=== PATIENT | male | born 1975 | race Caucasian/White ===

== ENCOUNTER 2018-11-14 07:40 | Inpatient (IN) | payer BC, SELFPAY ==
[2018-11-14] MEDS ORDERED: Ondansetron PF 4 MG/2 ML Vial ONE (07:45)
[2018-11-14] MEDS ORDERED: Morphine 4 MG/ML VIAL ONE ×2 (07:45→08:25)
--- NOTE | 2018-11-14 08:14 | RAD ---
Exam:Left tibia fibula 2 views HISTORY: Pain. Trauma. COMPARISON: None FINDINGS: Comminuted fractures involving the tibia and fibula with associated soft tissue swelling de formity. IMPRESSION: Comminuted fractures as above.
[2018-11-14] MEDS ORDERED: Fentanyl 100 MCG/2 ML VIAL ONE ×5 (08:34→12:51)
[2018-11-14 09:02] LABS: Hemoglobin 14.7 g/dL (14.0-18.0); Mean Corpuscular HGB CONC 33.4 g/dL (32.0-36.0); Mean Corpuscular Hemoglobin 32.5 pg (27.0-31.0); Mean Corpuscular Volume 97.2 fL (78.0-98.0); Platelet Count 279 thou/uL (130-400); RBC Distribution Width 11.8 % (11.5-14.5); Red Blood Cell (RBC) Count 4.53 mill/uL (4.70-6.10); White Blood Cell (WBC) Count 23.9 thou/uL (4.8-10.8)
--- NOTE | 2018-11-14 09:03 | RAD ---
EXAM: Single view of the chest HISTORY: Chest pain after chest trauma by a cow COMPARISON: None FINDINGS: Single view of the chest shows a normal sized cardiomediastinal silhouette. There is no luis dence of consolidation, mass, or pleural effusion. The bones are unremarkable. IMPRESSION: No evidence of acute cardiopulmonary disease
[2018-11-14 09:15] LABS: ALT (SGPT) 14 U/L (8-55); AST (SGOT) 15 U/L (5-34); Albumin 4.1 g/dL (3.5-5.0); Alkaline Phosphatase 53 U/L (40-150); Anion Gap 11 mmol/L (10-20); BUN (Urea Nitrogen) 15 mg/dL (8.9-20.6); Bilirubin, Total 0.3 mg/dL (0.2-1.2); Calc. Creatinine Clearance 0 mL/min (70-130); Calcium 8.9 mg/dL (7.8-10.44); Carbon Dioxide 25 mmol/L (22-29); Chloride 106 mmol/L (98-107); Estimated GFR-MDRD 64; Globulin 2.9 g/dL (2.4-3.5); Glucose 108 mg/dL (70-105); Potassium 4.3 mmol/L (3.5-5.1); Sodium 138 mmol/L (136-145)
[2018-11-14 09:19] LABS: Band 19 % (5-11); Lymphocytes 19 % (21-51); MDiff Complete? YES; Monocytes 9 % (0-10); Neutrophil 53 % (42-75); RBC Morphology Normal
[2018-11-14] MEDS ORDERED: Midazolam HCl 2 mg/2 ml Vial ONE (10:43)
--- NOTE | 2018-11-14 11:17 | HP ---
This is Rut Quesada PA-C dictating a report for Duncan Rizo DO. TRAUMA SURGEON: Dr. Rizo. CONSULTING PHYSICIAN: Dr. Carrillo. HISTORY OF PRESENT ILLNESS: The patient is a 43-year-old male, who presented to the emergency department via a level 2 trauma activation. The patient reported he was loading cattle into a trailer, when one of the cattle has hit the gate, pushing the patient over, and then he fallen to his left side. He was not ambulatory on the scene. Upon evaluation by the emergency department, it was found that he has a left comminuted tib-fib fracture. Orthopedic Surgery was consulted as well as Trauma Surgery for admission. Dr. Carrillo saw the patient and recommended operative intervention. The patient denies loss of consciousness and anticoagulation use. He denies nausea, vomiting, and diarrhea. REVIEW OF SYSTEMS: All additional 10-point review of systems negative except as indicated above. PAST MEDICAL HISTORY: None. PAST SURGICAL HISTORY: None. SOCIAL HISTORY: The patient smokes about 1-1/2 packs of cigarettes per day, drinks alcohol occasionally, and denies drug abuse. MEDICATIONS: None. ALLERGIES: NO KNOWN DRUG ALLERGIES. PHYSICAL EXAMINATION: VITAL SIGNS: Temperature 98.8, heart rate 92, blood pressure 152/89, respirations 18, oxygen saturation 99% on room air. PRIMARY SURVEY: Airway intact. Adequate breath sounds bilaterally. 2+ pulses in bilateral radials, femorals, and DPs. GCS is 15. Gross motor and sensation intact. No lacerations, no bruises or external bleeding. SECONDARY SURVEY: HEAD: Normocephalic and atraumatic. No gross palpable skull deformities or tenderness. EYES: Pupils are 3 to 2, equal, round, and reactive bilaterally. ENT: No hemotympanum. No epistaxis. No septal hematoma. Midface stable to manipulation. No blood in the oropharynx. Dentition is intact. No anterior neck injury/crepitus/tenderness. C-SPINE: No step-offs or deformities. Nontender. C-collar not in place. CHEST: Nontender. No crepitus. No abrasions or ecchymosis. Equal chest movement. ABDOMEN: Soft, nontender, and nondistended. PELVIS: Stable to palpation. Nontender. No abrasions or ecchymosis. RECTAL: Deferred. GENITOURINARY: Deferred. EXTREMITIES: Splint to left lower extremity. Gross motor and sensation intact in all extremities. No abrasions or ecchymosis noted. 2+ pulses in the bilateral radials, femorals, and DPs. BACK/SPINE: No step-offs, deformities or tenderness to palpation of the thoracic or lumbar spine. No abrasions or ecchymosis noted. NEUROLOGIC: GCS is 15, 5/5 strength in bilateral linoleum layer apprentice, plantar flexion, and dorsiflexion. Gross motor and sensation intact x4 extremities. LABORATORY FINDINGS: White count 23.9, hemoglobin 14.7, hematocrit 44.0, and platelets . Sodium 138, potassium 4.3, chloride 106, carbon dioxide 25, BUN 15, creatinine 1.23, and glucose 108. Total bilirubin 0.3, AST 15, and ALT 14. DIAGNOSTIC FINDINGS: X-ray of the left tib-fib demonstrates comminuted fracture of the left tib-fib. X-ray of the chest demonstrates no evidence of acute cardiopulmonary disease. ASSESSMENT: 1. Status post fall. 2. Left tib-fib fracture, closed. 3. Acute traumatic pain secondary to trauma. PLAN: The patient will be admitted to the trauma floor. He is to go to the OR with Dr. Carrillo today for fixation of his left tib-fib fracture. Postoperatively, he will work with Physical and Occupational Therapy. He is n.p.o. for now with normal saline at 120 an hour. He will not receive chemo DVT prophylaxis today and we will start it tomorrow. He will receive gastric ulcer prophylaxis with Pepcid b.i.d. The patient was seen and evaluated by Dr. Rizo and myself this morning in the emergency department. Job ID: [id number]
[2018-11-14] MEDS ORDERED: Meperidine HCl/PF 25 MG/ML VIAL ONE (12:51)
[2018-11-14] MEDS ORDERED: Ondansetron HCl/PF 4 MG/2 ML Vial IVP PRN (12:55)
[2018-11-14] MEDS ORDERED: Promethazine HCl 25 MG/ML VIAL IM PRN ×2 (12:55→14:14)
[2018-11-14] MEDS ORDERED: Promethazine HCl 25 MG/ML VIAL SLOW IVP PRN (12:55)
[2018-11-14] MEDS ORDERED: HYDROmorphone 2 MG/ML VIAL SLOW IVP PRN (12:55)
[2018-11-14] MEDS ORDERED: Meperidine HCl/PF 25 MG/ML VIAL SLOW IVP PRN (12:55)
[2018-11-14] MEDS ORDERED: Ketorolac Tromethamine 30 MG/ML VIAL ONE (13:04)
[2018-11-14] MEDS ORDERED: HYDROmorphone 2 MG/ML VIAL ONE (13:04)
[2018-11-14] MEDS ORDERED: Dextrose 5% in Water 1,000 ML IV PRN (14:14)
[2018-11-14] MEDS ORDERED: traMADol HCl 50 MG TAB PO PRN (14:14)
[2018-11-14] MEDS ORDERED: hydrALAZINE 20 MG/ML VIAL SLOW IVP PRN (14:14)
[2018-11-14] MEDS ORDERED: Ondansetron PF 4 MG/2 ML Vial IVP PRN (14:14)
[2018-11-14] MEDS ORDERED: Dextrose 50% Abboject 50 ML SYRINGE SLOW IVP PRN (14:14)
[2018-11-14] MEDS: Morphine 4 MG/ML VIAL SLOW IVP PRN (15:28)
[2018-11-14 15:31] LABS: Prothrombin Time 12.9 SEC (12.0-14.7)
[2018-11-14 15:49] VITALS: BMI 27.0
--- NOTE | 2018-11-14 15:59 | RAD ---
Exam:Intraoperative fluoroscopy HISTORY: Fracture COMPARISON: None FINDINGS: 8 fluoroscopic views demonstrate placement of intramedullary marium with 2 distal and 2 proxim al interlocking screws. Fracture lucencies are identified. Proximal and distal fibular fractures are noted Exposure: 50 seconds. 0.73 Gy*cm2. IMPRESSION: Intraoperative fluoroscopy as above. Transcribed Date/Time: 11/14/2018 4:21 PM
[2018-11-14] MEDS: Sodium Chloride 0.9% 1,000 ML IV SCH ×2 (16:05→23:16)
--- NOTE | 2018-11-14 16:09 | CON ---
DATE OF CONSULTATION: CHIEF COMPLAINT: Left leg pain. HISTORY OF PRESENT ILLNESS: Tomas is a 43-year-old white male, who had an accident at the [facility] earlier this morning. He was moving cattle for transport. [place] swung open and his left leg was caught between the ramp and the gate as he fell over, resulting in a distal 3rd metadiaphyseal segmental tibial fracture with accompanied segmental fibular fracture. He was brought to [facility] via EMS and plain radiographs revealed the isolated long-bone fracture on the left leg. The Trauma team has admitted the patient and we have been consulted for definitive orthopedic management of this problem. PAST MEDICAL HISTORY: Essentially negative. PAST SURGICAL HISTORY: Negative. MEDICATIONS: None. ALLERGIES: NO KNOWN DRUG ALLERGIES. NOT ANY CONTACT ALLERGIES. SOCIAL HISTORY: He is . He lives locally outside of [place] and he does smoke about a pack and a half of cigarettes per day. Ethanol, he consumes on social basis. PHYSICAL EXAMINATION: VITAL SIGNS: Well-nourished, well-developed white male, appearing his stated age, no apparent distress or discomfort. HEENT: Head is normocephalic, atraumatic. Pupils equally round and reactive to light. Oropharynx is benign. CHEST: Clear to auscultation. HEART: Regular rate and rhythm. ABDOMEN: Soft, benign. EXTREMITIES: No clubbing, cyanosis, or edema. Visual inspection of left lower extremity demonstrates him to have a tenting of the skin about distal 3rd of the anterior mid pagan. He is neurovascularly intact and reduction maneuver is performed to correct his apex dorsal deformity, but his rotation appears to be pretty good. Distal pulses are bounding and +2 dorsalis pedis, posterior tibialis and he has good full digital excursion and sensation in all digits. IMPRESSION: 1. Isolated left tibial segmental distal 3rd metadiaphyseal shaft fracture, closed. 2. Segmental fibular shaft fracture, closed. PLAN: 1. The patient will be admitted by Trauma. 2. The risks, benefits, options, alternatives, and rationale for proceeding with transtibial intramedullary nail fixation has been explained in great detail with the patient. He is ready to proceed. All questions were answered. No guarantee of outcome has been stated or implied. 3. I dosed the patient with 100 mcg of fentanyl and applied in-line longitudinal traction to perform reduction of his shortened and apex anterior deformity. A well-padded posterior splint was applied. The patient tolerated this well. 4. Please see orders. Job ID: [id number]
[2018-11-14] MEDS: Acetaminophen 1,000 MG in Premix Bag 1 BAG IVPB SCH (18:03)
[2018-11-14] MEDS: CEFAZOLIN 2 GM in Premix Bag 1 BAG IVPB SCH (18:03)
[2018-11-14] MEDS: traMADol HCl 50 MG TAB PO SCH (18:03)
[2018-11-14] MEDS: Cyclobenzaprine 10 MG TAB PO PRN (21:13)
[2018-11-14] MEDS: Ibuprofen 800 MG TAB PO SCH (21:13)
[2018-11-14] MEDS: Senokot S 8.6-50 MG TAB PO SCH (21:13)
[2018-11-14] MEDS: Aspirin 81 mg Enteric Coated Tablet PO SCH (21:14)
[2018-11-14] MEDS: Famotidine 20 MG TAB PO SCH (21:14)
[2018-11-15] MEDS: CEFAZOLIN 2 GM in Premix Bag 1 BAG IVPB SCH (02:21)
[2018-11-15] MEDS: Acetaminophen 1,000 MG in Premix Bag 1 BAG IVPB SCH ×2 (05:41)
[2018-11-15] MEDS: Ibuprofen 800 MG TAB PO SCH ×3 (05:42→22:16)
[2018-11-15] MEDS: traMADol HCl 50 MG TAB PO SCH ×4 (05:42→22:17)
[2018-11-15 05:51] LABS: #Eosinphils 0.1 thou/uL (0.0-0.7); #Lymphocytes 3.3 thou/uL (1.20-3.40); #Monocytes 2.1 thou/uL (0.11-0.59); #Neutrophils 12.5 thou/uL (1.40-6.50); %Basophils 0.1 % (0.0-1.0); %Eosinophils 0.5 % (0.0-10.0); %Lymphocytes 18.5 % (21.0-51.0); %Monocytes 11.7 % (0.0-10.0); %Neutrophils 69.1 % (42.0-75.0); Hemoglobin 11.5 g/dL (14.0-18.0); Mean Corpuscular HGB CONC 33.6 g/dL (32.0-36.0); Mean Corpuscular Hemoglobin 32.9 pg (27.0-31.0); Mean Platelet Volume 7.7 fL (7.4-10.4); Platelet Count 222 thou/uL (130-400); RBC Distribution Width 11.7 % (11.5-14.5); Red Blood Cell (RBC) Count 3.51 mill/uL (4.70-6.10)
[2018-11-15 06:07] LABS: Anion Gap 10 mmol/L (10-20); BUN (Urea Nitrogen) 14 mg/dL (8.9-20.6); Calc. Creatinine Clearance 120 mL/min (70-130); Calcium 8.5 mg/dL (7.8-10.44); Carbon Dioxide 24 mmol/L (22-29); Chloride 110 mmol/L (98-107); Estimated GFR-MDRD 78; Glucose 100 mg/dL (70-105); Magnesium 2.1 mg/dL (1.6-2.6); Phosphorus 3.8 mg/dL (2.3-4.7); Potassium 4.3 mmol/L (3.5-5.1); Sodium 140 mmol/L (136-145)
[2018-11-15] MEDS: Sodium Chloride 0.9% 1,000 ML IV SCH (06:12)
--- NOTE | 2018-11-15 08:37 | OP ---
DATE OF PROCEDURE: 11/14/2018 PROCEDURE PERFORMED: Left segmental tibia fracture intramedullary nail fixation and closed treatment of left fibular fracture. PREOPERATIVE DIAGNOSIS: Left segmental tibia fracture and fibula fracture. POSTOPERATIVE DIAGNOSIS: Left segmental tibia fracture and fibula fracture. NOODLE MAKER: graduate teaching assistant, Mariusz Licea PA-C COMPLICATIONS: None. ESTIMATED BLOOD LOSS: 100 mL. ANESTHESIA: General. IMPLANTS: Synthes tibial nail size 10 mm x 345 mm with Crosslock screws. INDICATIONS: Mr. 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 He had a displaced and comminuted fracture. He was indicated for intramedullary nail fixation of the tibia to restore anatomic alignment, promote healing, and prevent complications. Risks have been reviewed with him including infection, nonunion, malunion, and others. DESCRIPTION OF PROCEDURE: Mr. Bernabe was identified in the preoperative holding area. His correct extremity was marked. He was carried to the operating room. He was positioned supine. General anesthesia was induced. A multidisciplinary time-out was performed. The left lower extremity was prepped and draped in sterile fashion. We began the procedure with anterior approach to the knee. We dissected down through the subcutaneous tissues to the patellar tendon. The retinaculum was opened. We then obtained an appropriate start point for our guidewire. This was inserted in the proximal tibia. Next, we overdrilled the guidewire. Next, we placed a ball-tipped guidewire across the fracture distally, centering this in the distal aspect of the ankle. We then measured an appropriate length. Next, we reamed from 8.5 reamer up to an 11 mm reamer. We then impacted our tibial nail. We guided this with intraoperative x-ray. We had a good anatomic reduction. At this point, we placed 2 Crosslock screws proximally and 2 Crosslock screws distally. These stabilized the nail. We took final x-ray images confirming all hardware placement and there were no complications. The patient's wounds were irrigated and closed in layers appropriately. A splint was placed. He was taken to the recovery room at this point in good condition. Job ID: [id number]
[2018-11-15] MEDS: Senokot S 8.6-50 MG TAB PO SCH ×2 (08:51→22:17)
[2018-11-15] MEDS: Famotidine 20 MG TAB PO SCH ×2 (08:55→22:18)
[2018-11-15] MEDS: Aspirin 81 mg Enteric Coated Tablet PO SCH ×2 (08:55→22:18)
[2018-11-15] MEDS ORDERED: Morphine 4 MG/ML VIAL ONE (10:15)
[2018-11-15] MEDS ORDERED: Morphine 4 MG/ML VIAL SLOW IVP SCH (10:15)
[2018-11-15] MEDS: Acetaminophen 500 MG TAB PO SCH ×3 (13:42→23:18)
[2018-11-15] MEDS: Polyethylene Glycol 3350 17 GM Packet PO SCH (13:43)
[2018-11-15] MEDS: Morphine 4 MG/ML VIAL SLOW IVP PRN (13:46)
--- NOTE | 2018-11-15 13:51 | PRG ---
DATE OF SERVICE: 11/15/2018 SUBJECTIVE: The patient was seen this morning, working with physical therapy. He was ambulating with crutches. He reported he was having significant pain while working with therapy, and he was given 4 mg IV at that time. He is tolerating regular diet, voiding without difficulties. Denies nausea, vomiting, or diarrhea. OBJECTIVE: VITAL SIGNS: Temperature 98.3, pulse 66, respirations 20, oxygen saturation 97% on room air, blood pressure 107/71. GENERAL: Well-appearing middle-aged male, ambulating with crutches with some moderate distress. CARDIAC: Regular rate and rhythm. No murmurs, gallops, or rubs. PULMONARY: Equal chest rise and fall. Clear breath sounds bilaterally. No signs of acute respiratory distress. GI: Abdomen is soft, nontender, nondistended. EXTREMITIES: 2+ pulses in all extremities. No significant swelling noted. Left lower extremity with splint in place and not soiled. LABORATORY FINDINGS: White count 18.0, hemoglobin 11.5, hematocrit 34.9, platelets 222. Sodium 140, potassium 4.3, chloride 110, carbon dioxide 24, BUN 14, creatinine 1.03, glucose 100, phos 3.8, magnesium 2.1. DIAGNOSTIC FINDINGS: There are no new diagnostic findings to report. ASSESSMENT: 1. 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 The patient subsequently fell and had a left-sided tib-fib fracture. 2. Left-sided closed tib-fib fracture. 3. Acute traumatic pain due to left lower extremity fracture. PLAN: The patient to continue to work with Physical Therapy today. We will increase tramadol and schedule it at 100 q.6 hours as well as Tylenol ibuprofen, Flexeril, p.r.n. morphine for pain. The patient can be discharged whenever he has adequate pain control as long as he can maneuver well with the crutches. The Trauma Team will reassess on this afternoon and consider discharge at that time. If not, we will readjust pain medications and consider discharge tomorrow. The patient was seen and examined by Dr. Rizo and myself this morning during rounds. Job ID: [id number]
[2018-11-15] MEDS: Cyclobenzaprine 10 MG TAB PO PRN ×2 (15:42→22:21)
[2018-11-16] MEDS: traMADol HCl 50 MG TAB PO SCH ×2 (03:59→09:11)
[2018-11-16] MEDS: Acetaminophen 500 MG TAB PO SCH ×2 (05:14→12:27)
[2018-11-16] MEDS: Ibuprofen 800 MG TAB PO SCH (05:14)
[2018-11-16 05:47] LABS: Anion Gap 9 mmol/L (10-20); BUN (Urea Nitrogen) 15 mg/dL (8.9-20.6); Calc. Creatinine Clearance 131 mL/min (70-130); Calcium 8.2 mg/dL (7.8-10.44); Carbon Dioxide 26 mmol/L (22-29); Chloride 109 mmol/L (98-107); Estimated GFR-MDRD 86; Glucose 93 mg/dL (70-105); Magnesium 2.2 mg/dL (1.6-2.6); Phosphorus 3.3 mg/dL (2.3-4.7); Potassium 4.1 mmol/L (3.5-5.1); Sodium 140 mmol/L (136-145)
[2018-11-16 06:20] LABS: Band 2 % (5-11); Eosinophils 4 % (0-10); Hemoglobin 11.2 g/dL (14.0-18.0); Lymphocytes 35 % (21-51); MDiff Complete? YES; Macrocytosis SLIGHT = 6-15 cells (100X) (0-5/hpf); Mean Corpuscular HGB CONC 33.4 g/dL (32.0-36.0); Mean Corpuscular Hemoglobin 32.8 pg (27.0-31.0); Mean Corpuscular Volume 98.3 fL (78.0-98.0); Mean Platelet Volume 8.2 fL (7.4-10.4); Monocytes 12 % (0-10); Neutrophil 47 % (42-75); Platelet Count 220 thou/uL (130-400); Platelet Morphology Comment Appears Adequate; Red Blood Cell (RBC) Count 3.41 mill/uL (4.70-6.10); White Blood Cell (WBC) Count 15.1 thou/uL (4.8-10.8)
[2018-11-16] MEDS: Senokot S 8.6-50 MG TAB PO SCH (09:10)
[2018-11-16] MEDS: Polyethylene Glycol 3350 17 GM Packet PO SCH (09:10)
[2018-11-16] MEDS: Famotidine 20 MG TAB PO SCH (09:11)
[2018-11-16] MEDS: Aspirin 81 mg Enteric Coated Tablet PO SCH (09:11)
[2018-11-16 11:25] VITALS: BP 120/70; TEMP 98
--- NOTE | 2018-11-17 01:46 | DIS ---
DATE OF ADMISSION: 11/14/2018 DATE OF DISCHARGE: 11/16/2018 This is Giovana Kulkarni NP dictating a report for Duncan Rizo DO. CONSULTS: Orthopedic Surgery, Dr. Carrillo. PROCEDURES: 1. X-ray of left tib-fib demonstrates comminuted fracture of the left tib-fib. 2. Chest x-ray demonstrates no evidence of acute cardiopulmonary process. 3. On 11/14/2018, procedure of left segmental tibial fracture, intramedullary nail fixation and closed treatment of the left fibular fracture. PRIMARY DIAGNOSIS: Left tibial fibular fracture, closed. SECONDARY DIAGNOSIS: Acute traumatic pain, resolving. DISCHARGE MEDICATIONS: 1. Flexeril 5 mg p.o. 3 times a day as needed, #42 tabs. 2. Tramadol 100 mg q.6 hours for 14 days as needed. 3. Aspirin 81 mg p.o. twice a day for 30 days. 4. Acetaminophen 1000 mg q.6 hours. 5. Ibuprofen 800 mg every 8 hours. 6. MiraLAX as needed. DISCONTINUE MEDICATIONS: There are no discontinued medications. HISTORY OF PRESENT ILLNESS AND HOSPITAL COURSE: This is a 43-year-old gentleman, who presented to the emergency department as a level 2 trauma activation. The patient reported he was loading cattle into a trailer when one of the cattle hit the gate, pushing the patient over, which caused the patient to fall onto his left side. The patient was nonambulatory on scene. The patient was evaluated in the emergency room to find a left comminuted tibial fibular fracture. Orthopedic Surgery was consulted, as well as Trauma Surgery for admission. The patient was taken to the operating room for repair without any complications. The patient had no loss of consciousness or any other injuries during the accident. Denies any nausea, vomiting, or diarrhea. The patient had pain control issues postop, which delayed him going home one day. Today, the patient reports his pain is well controlled and he is ready to go home. The patient was examined by Dr. Rizo today. On the day of discharge, the patient was stable. The patient's physical exam was unremarkable including cardiopulmonary and GI exam. The patient was deemed stable for discharge home. Vital signs stable. Temp 98.0, pulse 74, respirations 18, SpO2 of 99% on room air, blood pressure 120/70. The patient's hemoglobin and hematocrit stable this morning. DISPOSITION: Stable. DISCHARGE INSTRUCTIONS: 1. Location: Home. 2. Diet: Regular diet. 3. Activity: Orthopedic limitations, toe-touch weightbearing, left leg. The patient is to use crutches. 4. Followup: Follow up with Dr. Carrillo in 10 to 14 days as directed. Please call for an appointment. Follow up with Trauma Clinic, Dr. Rizo, only if needed. Call for any questions, not necessary to follow up. Follow up with primary care physician. Job ID: [id number]
== END 2018-11-16 14:53 | disposition home or self-care (01) | DRG 494 ==
LOC: ERS 07:40 → SDC 08:50 → SJJU 10:00
PROVIDERS: ADMIT Surgery; ATTEND Surgery
PROC: 0QHH06Z Insertion of Intramedullary Internal Fixation Device into Left Tibia, Open Approach (ICD-10-PCS; principal; 2018-11-14)
PROC: 0QSKXZZ Reposition Left Fibula, External Approach (ICD-10-PCS; 2018-11-14)
DX: S82.252A Displaced comminuted fracture of shaft of left tibia, initial encounter for closed fracture (principal); S82.452A Displaced comminuted fracture of shaft of left fibula, initial encounter for closed fracture; F17.210 Nicotine dependence, cigarettes, uncomplicated; W18.00XA Striking against unspecified object with subsequent fall, initial encounter
CPT/HCPCS: 36415; 71045; 76000; 80048; 80053; 83735; 84100; 85025; 85610; C1713; C1769; G0390; J0131; J0690; J1170; J1885; J2175; J2250; J2270; J2405; J3010

== ENCOUNTER 2018-11-27 13:41 | Outpatient (CLI) | payer OTHER ==
--- NOTE | 2018-11-27 14:24 | ULT ---
EXAM: Left lower extremity venous Doppler US HISTORY: left lower extremity edema and pain FINDINGS: Grayscale, color-flow, Doppler evaluation, spectral analysis of the left lower extremity venous struc tures is performed with 2-D imaging. The left common femoral, superficial femoral, popliteal, posterior tibial, proximal greater saphenous and profunda femoral veins are imaged. There is normal luminal compressibility, flow, and augmentation the visualized deep venous structures of the left lower extremity. IMPRESSION: No evidence of a deep vein thrombosis in the left lower extremity.
== END 2018-11-27 13:42 | disposition home or self-care (01) ==
LOC: ULT 13:41
PROVIDERS: ATTEND Physician Assistant Medical
DX: M79.89 Other specified soft tissue disorders (principal); S82.262D Displaced segmental fracture of shaft of left tibia, subsequent encounter for closed fracture with routine healing

== ENCOUNTER 2019-03-27 12:13 | Outpatient (CLI) | payer OTHER ==
--- NOTE | 2019-03-27 13:05 | CT ---
Left lower extremity CT scan without IV contrast: HISTORY: Follow-up tibia fracture, concern for nonhealing FINDINGS: Extensively comminuted displaced fractures involving the tibial shaft stabilized with an intramedulla ry marium. These fractures extend approximately 10 cm in craniocaudal dimension. There is heterogeneous bony demineralization distally evidence for disuse or possibly complex regional pain sy ndrome. Slightly oblique fibular shaft fracture with some bony callus. 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 Distal bony demineralization.
== END 2019-03-27 12:14 | disposition home or self-care (01) ==
LOC: BICCT 12:13
PROVIDERS: ATTEND Family Medicine
DX: S82.262D Displaced segmental fracture of shaft of left tibia, subsequent encounter for closed fracture with routine healing (principal); S82.252K Displaced comminuted fracture of shaft of left tibia, subsequent encounter for closed fracture with nonunion

== ENCOUNTER 2019-04-26 06:00 | Inpatient (IN) | payer OTHER ==
[2019-04-25 10:40] VITALS: BMI 27.0
[2019-04-26] MEDS ORDERED: Neomycin-Polymyxin 1 ML AMP ONE (06:39)
[2019-04-26] MEDS ORDERED: Fentanyl 100 MCG/2 ML VIAL ONE ×3 (07:31→09:16)
[2019-04-26] MEDS ORDERED: HYDROmorphone 2 MG/ML VIAL ONE ×2 (08:52→09:33)
[2019-04-26] MEDS ORDERED: traMADol HCl 50 MG TAB ONE (11:00)
--- NOTE | 2019-04-26 12:54 | RAD ---
EXAM: 2 views of the left tibia/fibula HISTORY: Tibia and fibula fractures; hardware exchange COMPARISON: 11/14/2018 FINDINGS: Limited intraoperative fluoroscopic views of the left tibia/fibular shows the patient is st atus post antegrade intramedullary maruim fixation of the tibial fracture. A fibular fracture is also seen. IMPRESSION: Fixation of tibial fracture as above
--- NOTE | 2019-04-26 15:25 | OP ---
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 PROCEDURES PERFORMED: 1. Removal of left tibial nail. 2. Exchanged reamed nailing of left tibia. ANESTHESIA: General. ELECTRICAL SOLDERER: Shasha Marvin PA-C. TOURNIQUET TIME: 44 minutes at 300 mmHg. IMPLANTS: Synthes 12 x 345 mm nail with 3 Crosslock screws. COMPLICATIONS: None. DRAINS: None. SPECIMEN: Explanted tibial nail, discarded. OUTCOME: Successful nailing. INDICATIONS: The patient is a 43-year-old gentleman, status post a left comminuted distal third tibial shaft fracture, which was initially treated with an intramedullary nail in 10/2018. Unfortunately, the patient has not shown any significant healing of the distal tibial shaft. He has had a workup, including a CT scan, that does show a nonunion site. Labs have shown a normal white count with just a slightly elevated CRP, but no evidence of infection. After discussion with the patient including risks and benefits, we decided to proceed with an exchange reamed nailing. Informed consent has been obtained, I believe all questions answered. DESCRIPTION OF PROCEDURE: The patient was brought to the operating room and a time-out performed followed by induction of general anesthesia. Next, a sterile prep and drape were performed of the left lower extremity. Two small stab wounds were made following the scars from the previous distal crosslocking. After skin was sharply incised, dissection was carried down bluntly and then each of the 2 distal Crosslock screws were removed without difficulty. Next, another medial incision was made at this time at the proximal extent of the tibia. After skin was sharply incised, dissection was carried down bluntly and one of the 2 proximal Crosslock screws were removed. Next, a midline anterior knee incision was made again following the previous skin incision. Skin was sharply incised and dissection carried down to the peritenon. Peritenon was incised in line with skin incision and elevated off the patellar tendon. Next, a medial parapatellar tendon approach to the proximal tibia was exploited. A curette was used to find a soft spot in the proximal tibia and then the nail was palpated. A rongeur and curette were used to further open the proximal tibia to allow for the extraction device to be screwed onto the proximal tibial nail. Next, the final proximal Crosslock screw was removed after the extraction jig was fully seated on the nail and then the nail was removed without difficulty. Next, a ball-tipped guidewire was passed down the canal of the tibia. This was reamed, starting at 10 mm, which was the size of the previously placed nail and then increasing by 1 mm increments up to size 13. This provided excellent area of cortical chatter, spanning the isthmus, extending down to the level of the fracture. Next, a 12 x 345 mm nail was passed over the guidewire. Once fully seated, the previously placed drill holes were exploited to provide 2 distal Crosslock screws. Next, A single dynamic screw was placed using the proximal jig. This was followed by irrigation and debridement of each of the 4 incisions and then wound closure. The distal most wounds were closed with margaret. The proximal Crosslock screw incision was closed in layers with 2-0 Vicryl and margaret and then the midline anterior knee incision was closed with 0 Vicryl for the peritenon followed by 2-0 Vicryl and margaret. Xeroform gauze, Webril, and posterior fiberglass splint were applied to the a leg. Tourniquet was let down at the completion of dressing with a total time of 44 minutes. There were no complications. He tolerated the procedure well. Job ID: [id number]
== END 2019-04-26 12:15 | disposition home or self-care (01) | DRG 494 ==
LOC: SURG A 06:00
PROVIDERS: ADMIT Orthopaedic Surgery; ATTEND Orthopaedic Surgery
PROC: 0QHH04Z Insertion of Internal Fixation Device into Left Tibia, Open Approach (ICD-10-PCS; principal; 2019-04-26)
PROC: 0QPH04Z Removal of Internal Fixation Device from Left Tibia, Open Approach (ICD-10-PCS; 2019-04-26)
DX: S82.252K Displaced comminuted fracture of shaft of left tibia, subsequent encounter for closed fracture with nonunion (principal); F17.200 Nicotine dependence, unspecified, uncomplicated; X58.XXXD Exposure to other specified factors, subsequent encounter
CPT/HCPCS: 76000; C1713; C1769; J0131; J0690; J1170; J3010